=== PATIENT | female | born 1985 | race Caucasian/White ===

== ENCOUNTER 2019-07-04 06:30 | Day surgery (SDC) | payer BC ==
[2019-06-28 12:42] VITALS: BMI 29.2
--- NOTE | 2019-07-03 20:22 | P.HPOB ---
History of Present Illness H&P Date: 07/03/19 Chief Complaint: Family planning, menorrhagia This is a 34-year-old female 4 para 4 who presents for laparoscopic bilateral tubal ligation along with removal of Mirena IUD and dilation and curettage with hysteroscopy and NovaSure endometrial ablation due to family pl anning and history of menorrhagia. She does not like the side effects from the Mirena including weight gain, moodiness, and cramping. She does however have a history of very heavy menses and would like to do something definitive to control her heavy bleeding. Obstetrical history: . History of 4 vaginal deliveries. Gynecologic history: No history of sexual transmitted diseases. She currently is using a Mirena IUD for control. Social history: She is . 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 Review of Systems Constitutional: Denies chills, Denies fever Eyes: denies blurred vision, denies pain Ears, nose, mouth and throat: Reports headache, Denies sore throat Respiratory: Denies cough Gastrointestinal: Denies abdominal pain, Denies diarrhea, Denies nausea, Denies vomiting Genitourinary: Reports menorrhagia (History) Menstruation: Reports amenorrhea on BC Musculoskeletal: Reports myalgias, Reports neck pain Integumentary: Denies pruritus, Denies rash Neurological: Denies numbness, Denies weakness Psychiatric: Reports depression, Reports irritability Endocrine: Reports weight change Past Medical History Past Medical History: Fibromyalgia, Thyroid Disorder History of Any Multi-Drug Resistant Organisms: None Reported Past Surgical History: Adenoidectomy, Breast Surgery, Tonsillectomy Additional Past Surgical History / Comment(s): Breast augmentation, wisdom teeth. Past Anesthesia/Blood Transfusion Reactions: No Reported Reaction Past Psychological History: Depression Smoking Status: Former smoker Past Alcohol Use History: Occasional Additional Past Alcohol Use History / Comment(s): Smoked 2 yrs on and off, quit 1 yr ago. Past Drug Use History: None Reported - Past Family History Mother Family Medical History: Cancer Additional Family Medical History / Comment(s): Uterine cancer. Medications and Allergies Home Medications Medication Instructions Recorded Confirmed Type Cholecalciferol [Vitamin D3 (25 2,000 unit PO DAILY 06/28/19 06/28/19 History Mcg = 1000 Iu)] Escitalopram [Lexapro] 20 mg PO QAM 06/28/19 06/28/19 History Gabapentin [Neurontin] 300 mg PO DAILY 06/28/19 06/28/19 History L.acidoph,Paracasei, B.lactis 1 each PO DAILY 06/28/19 06/28/19 History [Probiotic] Levothyroxine Sodium [Synthroid] 50 mcg PO QAM 06/28/19 06/28/19 History Topiramate [Topamax] 100 mg PO DAILY 06/28/19 06/28/19 History tiZANidine HCL [Zanaflex] 2 mg PO TID 06/28/19 06/28/19 History Allergies Allergy/AdvReac Type Severity Reaction Status Date / Time No Known Allergies Allergy Verified 06/28/19 12:43 Exam Osteopathic Statement: *. No significant issues noted on an osteopathic structural exam other than those noted in the History and Physical/Consult. HEENT: Within normal limits Heart: Regular rate and rhythm Lungs: Clear to auscultation bilaterally Abdomen: Soft, nontender Pelvic exam: Uterus is anteverted, nontender, with no adnexal masses or tenderness palpated. IUD strings are visible. Extremities: Negative Homans Assessment and Plan (1) Family planning Status: Acute Code(s): Z30.09 - ENCOUNTER FOR OTH GENERAL CNSL AND ADVICE ON CONTRACEPTION SNOMED Code(s): 187328449 (2) Menorrhagia Status: Acute Code(s): N92.0 - EXCESSIVE AND FREQUENT MENSTRUATION WITH REGULAR CYCLE SNOMED Code(s): 263794058 Plan: Proceed with removal of IUD along with laparoscopic bilateral tubal ligation via fulguration and dilation and curettage with hysteroscopy and NovaSure endometrial ablation. I have discussed the risks, benefits, and alternative therapies for the above- mentioned procedure and for both sedation/anesthesia as well as necessary blood products administration, if indicated, as they pertain to this patient. The patient has indicated her understanding and acceptance of the risks and procedures discussed.
[~2019-07-04 06:30] MED LIST: DEXAMETHASONE SOD PHOSPHATE 10 MG/ML 1 ML VIAL IV ONE; HYDROmorphone 0.5 MG/0.5 ML SYRINGE IVP PRN; KETOROLAC 30 MG/ML 1 ML VIAL IVP SCH; LACTATED RINGERS 1,000 ML IV SCH; LIDOCAINE 1% 20 ML VIAL (10MG/ML) FOR IV START INTRADERMA PRN; ONDANSETRON 4 MG/2 ML VIAL IVP ONE; ONDANSETRON 4 MG/2 ML VIAL IVP PRN; Pre Op ABX Message 1 EACH MISC MISCELLANE ONE; SCOPOLAMINE 1.5MG/72HR PATCH TRANSDERM ONE
[2019-07-04] MEDS ORDERED: GLYCOPYRROLATE 0.2 MG/ML 2 ML VIAL ONE (07:18)
[2019-07-04] MEDS ORDERED: KETOROLAC 30 MG/ML 1 ML VIAL ONE (07:18)
[2019-07-04] MEDS ORDERED: ROCURONIUM BROMIDE 10 MG/ML 10 ML VIAL IV ONE (07:18)
[2019-07-04] MEDS ORDERED: MIDAZOLAM 2 MG/2 ML VIAL ONE (07:18)
[2019-07-04] MEDS ORDERED: PROPOFOL 10 MG/ML 20 ML VIAL IV ONE (07:18)
[2019-07-04] MEDS ORDERED: SUCCINYLCHOLINE CHLORIDE 100 MG/5 ML SYR IV ONE (07:18)
[2019-07-04] MEDS ORDERED: LIDOCAINE 1% INJ 10MG/ML (20 ML MDV) ONE (07:18)
[2019-07-04] MEDS ORDERED: NEOSTIGMINE 1 MG/ML 10 ML VIAL ONE (07:18)
[2019-07-04] MEDS ORDERED: ePHEDrine SULFATE/0.9% NACL/PF 50 MG/5 ML SYRINGE IV ONE (07:18)
[2019-07-04] MEDS ORDERED: fentaNYL (PF) 50 MCG/ML 2 ML AMP ONE (07:18)
[2019-07-04] MEDS ORDERED: BUPIVACAINE (PF) 0.25% 30 ML VIAL SQ ONE (08:11)
--- NOTE | 2019-07-04 08:16 | P.OP ---
Date of Procedure: 07/04/19 Preoperative Diagnosis: Family planning History of menorrhagia Postoperative Diagnosis: Same Procedure(s) Performed: IUD removal Dilation and curettage with hysteroscopy and NovaSure endometrial ablation Laparoscopic bilateral tubal ligation via fulguration Anesthesia: JEAN Surgeon: Beckie Donovan Estimated Blood Loss (ml): 10 Pathology: other (Endometrial curettings) Disposition: same day Indications for Procedure: This is a 34-year-old female 4 para 4 who presents for laparoscopic bilateral tubal ligation along with removal of Mirena IUD and dilation and curettage with hysteroscopy and NovaSure endometrial ablation due to family planning and history of menorrhagia. She does not like the side effects from the Mirena including weight gain, moodiness, and cramping. She does however have a history of very heavy menses and would like to do something definitive to control her heavy bleeding. Operative Findings: Uterus is anteverted and sounded to 9 cm. Cervix sounded to 3 cm. Upon hysteroscopy, both tubal ostia is visualized. There is a small amount of blood clot within the endometrium due to IUD removal. Minimal amount of endometrial obtained. Upon laparoscopy, normal uterus tubes and ovaries are noted. Description of Procedure: The patient is taken to the operating room. She is placed in the dorsal lithotomy position after general anesthesia was given. She is prepped and draped in the normal sterile fashion. Bladder is drained with a catheter and then removed. Pelvic exam is performed under anesthesia. Uterus is found to be anteverted with no adnexal masses. She is placed in slight Trendelenburg position. A weighted speculum was placed in the patient's vagina. A right angle retractor is used to visualize the cervix. The anterior lip of the cervix is grasped with a single-tooth tenaculum. A forcep is used to grasp the IUD strings. The IUD the Mirena IUD and is removed intact and discarded. Cervix is sounded to 3 cm. Uterus is sounded to 9 cm. Cervix is gently dilated with Gallagher dilators until a hysteroscope could be passed. Hysteroscopy is performed using normal saline. The above noted findings are noted. Next a polyp forceps is introduced. And a minimal amount of tissue was obtained. Next medium-sized size sharp curette was placed. A minimal amount of endometrial curettings were obtained. Next NovaSure array was inserted into the endometrial cavity. Length was set at 6 cm and width was determined to be 2.7 cm. Next cavity assessment was completed and passed on the first try. Next NovaSure array was fired at 89 W for 86 seconds. Next the array was removed, inspected and then discarded. Next the hysteroscope was reinserted. Uniform charring was noted. Pictures were taken. Hysteroscope was removed. A kroner uterine manipulator is then inserted through the cervix and the balloon is inflated. Single-tooth tenaculum was removed from the anterior lip of the cervix. Minimal bleeding was noted. Attention is then turned to the abdomen. Gloves are changed. The i nfraumbilical fold was grasped in transverse fashion with 2 Allis clamps. A small transverse incision was made with a scalpel. A hemostat was used to carry the incision down to the underlying layer of fascia. A towel clip was placed above the umbilicus for retraction. A 11 mm disposable bladeless trocar was then inserted into the peritoneal cavity under direct visualization. Once inside, pneumoperitoneum was achieved with CO2 gas. The insert was removed and the camera was placed. Intraperitoneal placement was confirmed. No bleeding was noted. Next the patient was placed in Trendelenburg position. A small stab incision was made suprapubically and a 5 mm disposable bladeless trocar was inserted into the peritoneal cavity under direct visualization. Once inside pelvic contents were inspected. Next a bipolar Kleppinger instrument was placed through the inferior trocar and the midportion of each tube was brought away from other structures and completely fulgurated on approximate 2-3 cm segment of each tube. Excellent hemostasis was noted. A picture was taken. Pneumoperitoneum was released after the inferior trocar was removed under direct visualization. The upper trocar was then removed. The fascial incision was closed with 0 Vicryl suture in interrupted [id number] stitch. The skin incisions were then closed with 4-0 Vicryl suture in a subcuticular fashion. I ncisions were then injected with quarter percent Marcaine. Approximately 7 mL were used. Next the kroner uterine manipulator was removed. Minimal bleeding was noted. All sponge and needle counts are correct. The patient is then taken to recovery room in stable condition.
[2019-07-04 08:30] VITALS: TEMP 97.5
[2019-07-04 08:38] VITALS: RESP 16
[2019-07-04] MEDS ORDERED: HYDROcodone/APAP 5-325MG 1 EACH TAB PO ONE (09:10)
[2019-07-04 09:11] VITALS: BP 117/75; PULSE 66
== END 2019-07-04 10:04 | disposition home or self-care (01) ==
LOC: OR 06:30
PROVIDERS: ATTEND Obstetrics & Gynecology
DX: Z30.2 Encounter for sterilization (principal); N92.0 Excessive and frequent menstruation with regular cycle; Z30.432 Encounter for removal of intrauterine contraceptive device; N85.00 Endometrial hyperplasia, unspecified; M79.7 Fibromyalgia; E07.9 Disorder of thyroid, unspecified; F32.9 Major depressive disorder, single episode, unspecified; G43.909 Migraine, unspecified, not intractable, without status migrainosus; Z87.891 Personal history of nicotine dependence; Z79.890 Hormone replacement therapy; Z79.899 Other long term (current) drug therapy
CPT/HCPCS: 81025; 88305; 58563; 58670; 58301; J2250; J1100; J2710; J2405; J2001; J3010; J1885; J0330; J2704

== ENCOUNTER 2021-12-16 20:22 | Emergency (ER) | payer BC, OTHER ==
[2021-12-16 20:29] VITALS: BP 126/82; PULSE 93; RESP 18; TEMP 97.9
[2021-12-16] MEDS ORDERED: IBUPROFEN 600 MG TAB PO STA (21:17)
--- NOTE | 2021-12-16 21:52 | XR ---
EXAMINATION TYPE: XR hand complete LT DATE OF EXAM: 12/16/2021 9:34 PM INDICATION: Patient age:Female; 36 years old; Reason for study: hand pain; . COMPARISON: None TECHNIQUE: 3 views of the left hand were obtained. FINDINGS: Normal alignment of the visualized joints. No acute osseous pathology is identified. No e vidence of soft tissue swelling. IMPRESSION: No acute osseous pathology.
--- NOTE | 2021-12-16 22:30 | ED ---
Upper Extremity HPI - General Chief Complaint: Extremity Injury, Upper Stated Complaint: IHS, LT hand pain Time Seen by Provider: 12/16/21 20:30 Source: patient Mode of arrival: ambulatory Limitations: no limitations - History of Present Illness Initial Comments: 36-year-old female presents emergency Department with reported left hand pain. She does work at [employer] [place]. She slipped on urine at work and fell into a wall. She caught herself with her left hand. She is right-hand dominant. Reports that she is having pain at the 5th MCP joint. She did not take any medications for her symptoms. Continued to try work however was having difficulty using that hand in her work recommended that she come into the emergency room for x-rays. Denies any previous injuries. No additional injuries to include head trauma. Denies any neck or back pain. Denies any numbness, tingling or weakness in her hand. No other alleviating, precipitating or modifying factors - Related Data Home Medications Medication Instructions Recorded Confirmed Escitalopram [Lexapro] 20 mg PO HS 06/28/19 12/16/21 Gabapentin [Neurontin] 300 mg PO HS 06/28/19 12/16/21 Topiramate [Topamax] 100 mg PO HS 06/28/19 12/16/21 tiZANidine HCL [Zanaflex] 2 mg PO TID 06/28/19 12/16/21 Levothyroxine Sodium [Synthroid] 75 mcg PO DAILY 12/16/21 12/16/21 buPROPion XL [Wellbutrin XL] 150 mg PO HS 12/16/21 12/16/21 Allergies Allergy/AdvReac Type Severity Reaction Status Date / Time No Known Allergies Allergy Verified 12/16/21 21:37 Review of Systems ROS Statement: Those systems with pertinent positive or pertinent negative responses have been documented in the HPI. ROS Other: All systems not noted in ROS Statement are negative. Past Medical History Past Medical History: Fibromyalgia, Thyroid Disorder History of Any Multi-Drug Resistant Organisms: None Reported Past Surgical History: Adenoidectomy, Breast Surgery, Tonsillectomy Additional Past Surgical History / Comment(s): Breast augmentation, wisdom teeth. Past Anesthesia/Blood Transfusion Reactions: No Reported Reaction Past Psychological History: Depression Smoking Status: Current every day smoker Past Alcohol Use History: Occasional Past Drug Use History: None Reported - Past Family History Mother Family Medical History: Cancer Additional Family Medical History / Comment(s): Uterine cancer. General Exam Limitations: no limitations General appearance: alert, in no apparent distress Head exam: Present: atraumatic, normocephalic, normal inspection Extremities exam: Present: other (tenderness to 5th mcp joint on the left. Mild swelling. No ecchymosis. Full ROM at DIP, PIP and MCP. 2+ radial pulse. cap refill <2 seconds. Intact distal sensation. Compartments soft. No scaphoid tenderness) Course Vital Signs 12/16/21 20:26 Temperature 97.9 F Pulse Rate 93 Respiratory 18 Rate Blood Pressure 126/82 O2 Sat by Pulse 97 Oximetry Medical Decision Making - Medical Decision Making Upon arrival patient is placed into room 29. A thorough history and physical exam is performed. Patient has full normal range of motion. She is tender over the fifth MCP joint. X-rays performed which demonstrates no acute fracture. Patient is given a dose of Motrin for pain control. I discussed diagnosis, d ifferential treatment options. Patient will be discharged home with limited use of the left upper extremity. Instructed to rest, ice and elevate the extremity. Follow up to primary care doctor in 7-10 days for repeat imaging if her pain persists. Return for any new or worsening symptoms per patient agreement treatment plan was discharged home in stable condition Disposition Clinical Impression: Hand sprain Disposition: HOME SELF-CARE Condition: Stable Instructions (If sedation given, give patient instructions): Hand Sprain (ED) Additional Instructions: Rest, ice and elevate the extremity. Alternate taking Motrin and Tylenol for pain control. You may need repeat imaging in 7-10 days if your pain persists. Return to the emergency room for any new or worsening symptoms Is patient prescribed a controlled substance at d/c from ED?: No Referrals: Jacinto Azar DO [Primary Care Provider] - 1-2 days Bandar Clemente DO [Doctor of Osteopathic Medicine] - 1-2 days Time of Disposition: 22:30
== END 2021-12-16 22:38 | disposition home or self-care (01) ==
LOC: EC 20:22
DX: S63.92XA Sprain of unspecified part of left wrist and hand, initial encounter (principal); F17.200 Nicotine dependence, unspecified, uncomplicated; W22.01XA Walked into wall, initial encounter
CPT/HCPCS: 99283

== ENCOUNTER 2023-03-18 17:58 | Observation (INO) | payer BC ==
--- NOTE | 2023-03-18 18:13 | ED ---
Chest Pain HPI - General Chief Complaint: Chest Pain Stated Complaint: Chest Pain Time Seen by Provider: 03/18/23 18:09 Source: patient, EMS, RN notes reviewed, old records reviewed Mode of arrival: EMS Limitations: no limitations - History of Present Illness Initial Comments: This is a 37-year-old female DF for evaluation today. Patient Dese for evalu ation of near syncopal event with significant chest pain. Chest pain over the anterior left side of his chest radiating to her back. Patient has no significant medical history takes no medications for high blood pressure high cholesterol diabetes blood patient no longer currently smokes. No travel history no sick contacts. Events occurred prior to arrival with a near syncopal event diaphoresis. MD Complaint: chest pain -: minutes(s) Onset: during rest Pain Location: substernal, left chest Pain Radiation: back Severity: moderate, severe Severity scale (1-10): 7 Quality: sharp Consistency: intermittent Improves With: nothing Worsens With: nothing Anginal Symptoms: nausea, dyspnea, sense of impending doom Other Symptoms: palpitations Treatments Prior to Arrival: none - Related Data Home Medications Medication Instructions Recorded Confirmed Escitalopram [Lexapro] 20 mg PO HS 06/28/19 03/18/23 tiZANidine HCL [Zanaflex] 2 mg PO BID PRN 06/28/19 03/18/23 Levothyroxine Sodium [Synthroid] 75 mcg PO DAILY 12/16/21 03/18/23 buPROPion XL [Wellbutrin XL] 150 mg PO HS 12/16/21 03/18/23 Phentermine HCl [Adipex-P] 37.5 mg PO DAILY PRN 03/18/23 03/18/23 Allergies Allergy/AdvReac Type Severity Reaction Status Date / Time No Known Allergies Allergy Verified 03/18/23 19:20 Review of Systems ROS Statement: Those systems with pertinent positive or pertinent negative responses have been documented in the HPI. ROS Other: All systems not noted in ROS Statement are negative. EKG Findings - EKG Comments: EKG Findings:: EKG is sinus 90 TX 120 QRS 77 QTC 392 Past Medical History Past Medical History: Fibromyalgia, Thyroid Disorder History of Any Multi-Drug Resistant Organisms: None Reported Past Surgical History: Adenoidectomy, Breast Surgery, Tonsillectomy Additional Past Surgical History / Comment(s): Breast augmentation, wisdom teeth. Past Anesthesia/Blood Transfusion Reactions: No Reported Reaction Past Psychological History: Depression Smoking Status: Current every day smoker Past Alcohol Use History: Daily Past Drug Use History: None Reported - Past Family History Mother Family Medical History: Cancer Additional Family Medical History / Comment(s): Uterine cancer. General Exam Limitations: no limitations General appearance: anxious Head exam: Present: atraumatic, normocephalic, normal inspection Eye exam: Present: normal appearance, PERRL, EOMI. Absent: scleral icterus, co njunctival injection, periorbital swelling ENT exam: Present: normal exam, mucous membranes moist Neck exam: Present: normal inspection. Absent: tenderness, meningismus, lymphadenopathy Respiratory exam: Present: normal lung sounds bilaterally. Absent: respiratory distress, wheezes, rales, rhonchi, stridor Cardiovascular Exam: Present: regular rate, normal rhythm, normal heart sounds. Absent: systolic murmur, diastolic murmur, rubs, gallop, clicks GI/Abdominal exam: Present: soft, normal bowel sounds. Absent: distended, tenderness, guarding, rebound, rigid Extremities exam: Present: normal inspection, full ROM, normal capillary refill. Absent: tenderness, pedal edema, joint swelling, calf tenderness Back exam: Present: normal inspection Neurological exam: Present: alert, oriented X3, CN II-XII intact Psychiatric exam: Present: normal affect, normal mood Skin exam: Present: warm, dry, intact, normal color. Absent: rash Course Vital Signs 03/18/23 03/18/23 03/18/23 18:02 19:34 21:00 Temperature 99.4 F Pulse Rate 93 103 H 93 Respiratory 16 18 20 Rate Blood Pressure 132/91 128/87 143/82 O2 Sat by Pulse 97 98 98 Oximetry - Reevaluation(s) Reevaluation #1: 03/18/23 21:32 Medical record is reviewed Reevaluation #2: 03/18/23 21:32 Patient has persistent chest pain Reevaluation #3: 03/18/23 21:32 Patient informed results and questions are answered Reevaluation #4: 03/18/23 21:32 Was pt. sent in by a medical professional or institution? @ -no Did you speak to anyone other than the patient for history? @ -no Did you review nursing and triage notes? @ -agree Were old charts reviewed? @ -no Differential Diagnosis? @ -chest pain, arrhythmia EKG interpreted by me (3pts min.)? @ -yes X-rays interpreted by me (1pt min.)? @ -yes CT interpreted by me (1pt min.)? @ -no U/S interpreted by me (1pt. min.)? @ -no What testing was considered but not performed? (CT, X-rays, U/S, labs)? Why? @ -no What meds were considered but not given? Why? @ -no Did you discuss the management of the patient with other professionals? @ -no Did you reconcile home meds? @ -no Was smoking cessation discussed for >3mins.? @ -no Was critical care preformed (if so, how long)? @ -no Were there social determinants of health that impacted care today? How? (Homelessness, low income, unemployed, alcoholism, drug addiction, transportation, low edu. Level, literacy, decrease access to med. care, shelter, rehab)? @ -no Was there de-escalation of care discussed even if they declined? (Discuss DNR or withdrawal of care, Hospice)? @ -no What co-morbidities impacted this encounter? (DM, HTN, Smoking, COPD, CAD, Cancer, CVA, Hep., AIDS, mental health diagnosis, sleep apnea, morbid obesity)? @ -no Was patient admitted / discharged? @ -dc Undiagnosed new problem with uncertain prognosis? @ -no Drug Therapy requiring intensive monitoring for toxicity (Heparin, Nitro, Insulin, Cardizem)? @ -no Were any procedures done? @ -no Diagnosis/symptom? @ -cp Acute, or Chronic, or Acute on Chronic? @ -acute Uncomplicated (without systemic symptoms) or Complicated (systemic symptoms)? @ -uncomplicated Side effects of treatment? @ -no Exacerbation, Progression, or Severe Exacerbation] @ -exacerbation Poses a threat to life or bodily function? @ -yes if ACS Reevaluation #5: 03/18/23 21:32 Differential Chest Pain: Stable Angina, Unstable Angina, STEMI, NSTEMI Aortic Dissection, Pneumothorax, Musculoskeletal, Esophageal Spasm GERD, Cholecystitis, Pancreatitis, Zoster, this is not meant to be an all-inclusive list. - Consultations Consultation #1: Spoke with Dr. Azar who agrees to admit this patient Chest Pain MDM - MDM 37 female DF for evaluation patient Dese for evaluation of chest pain. Significant chest pain anterior to back. Near syncopal event during this initial chest pain, patient also had persistent chest pain here in the ER despite pain medication which radiated to her back and turned into significant back pain that was not reproducible. Patient episodes of diaphoresis with the chest was at its worst, patient will be admitted for cardiac observation Critical Care Time Critical Care Time: Yes Total Critical Care Time: 31 Disposition Clinical Impression: Chest pain, Atypical chest pain, Near syncope Disposition: ADMITTED IP TO THIS HOSP Condition: Undetermined Is patient prescribed a controlled substance at d/c from ED?: No Referrals: Jacinto Azar DO [Primary Care Provider] - 1-2 days Time of Disposition: 21:30
[2023-03-18 18:28] LABS: Basophils % (A) 0 %; Eosinophils # (A) 0.4 k/uL (0-0.7); Eosinophils % (A) 3 %; HCT 40.4 % (34.0-46.0); Lymphocytes # (A) 1.3 k/uL (1.0-4.8); Lymphocytes % (A) 9 %; MCH 30.7 pg (25.0-35.0); MCHC 34.6 g/dL (31.0-37.0); MCV 88.9 fL (80.0-100.0); Mean Platelet Volume 8.1; Monocytes # (A) 0.3 k/uL (0-1.0); Monocytes % (A) 2 %; Neutrophils # (A) 12.7 k/uL (1.3-7.7); Neutrophils % (A) 86 %; Platelet Count 304 k/uL (150-450); RBC 4.54 m/uL (3.80-5.40); RDW 13.6 % (11.5-15.5); WBC 14.8 k/uL (3.8-10.6)
[2023-03-18 18:37] LABS: ALT 27 U/L (4-34); AST 26 U/L (14-36); African American GFR (CKD) >90 (>60 ml/min/1.73 sqM); Albumin 4.1 g/dL (3.5-5.0); Alkaline Phosphatase 65 U/L (38-126); Anion Gap 11 mmol/L; Blood Urea Nitrogen 15 mg/dL (7-17); Calcium 9.4 mg/dL (8.4-10.2); Carbon Dioxide 20 mmol/L (22-30); Chloride 106 mmol/L (98-107); Glucose 92 mg/dL (74-99); Lipase 150 U/L (23-300); Magnesium 1.8 mg/dL (1.6-2.3); Non-African American GFR(CKD) >90 (>60 ml/min/1.73 sqM); Potassium 3.8 mmol/L (3.5-5.1); Sodium 137 mmol/L (137-145); Total Bilirubin 0.5 mg/dL (0.2-1.3); Total Protein 7.2 g/dL (6.3-8.2)
[2023-03-18 18:40] LABS: INR 0.9 (<1.2); Partial Thromboplastin Time 22.4 sec (22.0-30.0); Prothrombin Time 9.9 sec (9.0-12.0)
[2023-03-18] MEDS ORDERED: MORPHINE SULFATE 4 MG/ML SYRINGE IVP STA (19:10)
[2023-03-18] MEDS: ONDANSETRON 4 MG/2 ML VIAL IVP PRN (19:29)
--- NOTE | 2023-03-18 19:48 | XR ---
EXAMINATION TYPE: XR chest 2V DATE OF EXAM: 03/18/2023 7:14 PM COMPARISON: None TECHNIQUE: XR chest 2V Frontal and lateral views of the chest. CLINICAL INDICATION:Female, 37 years old with history of Chest Pain; FINDINGS: Lungs/Pleura: There is no evidence of pleural effusion, focal consolidation, or pneumothorax. Pulmonary vascularity: Unremarkable. Heart/mediastinum: Cardiomediastinal silhouette is unremarkable. Musculoskeletal: No acute osseous pathology. IMPRESSION: No acute cardiopulmonary disease/process.
[2023-03-18] MEDS ORDERED: HYDROmorphone 1 MG/ML 1 ML SYRINGE IVP STA (20:04)
--- NOTE | 2023-03-18 20:35 | CT ---
EXAMINATION TYPE: CT angio chest CT DLP: 854.6 mGycm, Automated exposure control for dose reduction was used. DATE OF EXAM: 03/18/2023 8:25 PM COMPARISON: Chest radiograph from same day. CLINICAL INDICATION:Female, 37 years old with history of cp; severe chest pain TECHNIQUE/CONTRAST: CTA scan of the thorax is performed with IV Contrast, patient injected with 100ml mL of Isovue 370, p ulmonary embolism protocol. MIP images are created and reviewed these are created on a separate work station.. FINDINGS: Mild motion artifact limits evaluation. Pulmonary Artery: There is no evidence for a filling defect within the pulmonary vasculature to sugge st acute pulmonary embolism. The pulmonary artery is of normal size. Lungs/Pleura: No evidence of focal consolidation, pleural effusion or pneumothorax. Airway: Large airways are patent. Heart: Heart is within normal limits for size. Vasculature: No evidence of aortic aneurysm. Mediastinum: No gross evidence of adenopathy. Musculoskeletal: No acute osseous abnormalities Soft Tissues: Bilateral breast implants which appear intact. Lower neck: No significant findings. Upper Abdomen: No significant findings. IMPRESSION: No evidence of pulmonary embolism or evidence for acute thoracic process.
[2023-03-18] MEDS ORDERED: PROCHLORPERAZINE INJ 10 MG/2 ML VIAL IVP STA (21:14)
[2023-03-18] MEDS ORDERED: MORPHINE SULFATE 4 MG/ML SYRINGE IVP PRN (21:14)
[2023-03-18] MEDS ORDERED: HYDROmorphone 1 MG/ML 1 ML SYRINGE IVP PRN (21:29)
[2023-03-18] MEDS ORDERED: NALOXONE 0.4 MG/ML 1 ML VIAL IV PRN (21:29)
[2023-03-18] MEDS ORDERED: SODIUM CHLORIDE 0.9% 1,000 ML IV SCH (21:30)
[2023-03-19] MEDS: ONDANSETRON 4 MG/2 ML VIAL IVP PRN (10:20)
[2023-03-19] MEDS ORDERED: LEVOTHYROXINE 75 MCG TAB PO SCH (10:45)
--- NOTE | 2023-03-19 11:00 | P.CRDCN ---
History of Present Illness Consult date: 03/19/23 History of present illness: HISTORY OF PRESENT ILLNESS: This is a 37-year-old female with a past medical history significant for hypothyroidism, depression, and nicotine dependence. Patient does not follow with a securities teller. We have been asked to see the patient in consultation for chest pain. Patient examined at the bedside. Patient states she was at work yesterday sitting at her desk when she began to have chest pain. She states that felt like a squeezing sensation. She states the pain radiated into her back. She states the pain lasted for approximately 5 minutes. She also reports that she began to feel diaphoretic and started to have blurred vision. She states that she laid on the floor and decided to call 911. She denies any loss of consciousness. She is a smoker and currently smokes half a pack per day. She has a family history of coronary artery disease and states her mom had a two-vessel CABG last year at the age of 68. * EKG reveals sinus mechanism with no signs of acute ischemia * Chest xray negative for acute process * Chest CT: No evidence for pulmonary embolism * Laboratory data: WBC 14.8. Hemoglobin 14.0. Platelet count 304. Sodium 137. Potassium 3.8. BUN 15. Creatinine 0.72. Troponin negative 3. ProBNP 39. * Current home cardiac medications include none REVIEW OF SYSTEMS: At the time of my exam: CONSTITUTIONAL: Denies fever or chills. HEENT: Denies blurred vision, vision changes, or eye pain. Denies hemoptysis CARDIOVASCULAR: Denies chest pain. Denies orthopnea. Denies PND. Denies palpitations RESPIRATORY: Denies shortness of breath. GASTROINTESTINAL: Denies abdominal pain. Denies nausea or vomiting. HEMATOLOGIC: Denies bleeding disorders. GENITOURINARY: Denies any blood in urine. SKIN: Denies pruitis. Denies rash. PHYSICAL EXAM: VITAL SIGNS: Reviewed. GENERAL: Well-developed in no acute distress. HEENT: Head is normocephalic. Pupils are equal, round. Sclerae anicteric. Mucous membranes of the mouth are moist. Neck supple. No JVD or thyromegaly LUNGS: Respirations even and unlabored. Lungs essentially clear to auscultation bilaterally. HEART: Regular rate and rhythm. S1 and S2 heard. ABDOMEN: Soft. Nondistended. Nontender. EXTREMITIES: Normal range of motion. No clubbing or cyanosis. Peripheral pulses intact. No lower extremity edema NEUROLOGIC: Awake and alert. Oriented x 3. ASSESSMENT: Chest pain, troponins negative 3 Hypothyroidism Depression Nicotine dependence Family history of coronary artery disease PLAN: An acute coronary has been ruled out Obtain 2-D echo to assess cardiac structure and function Patient to undergo stress echocardiogram today If negative, she may be discharged home from a cardiac standpoint Smoking cessation recommended Further recommendations pending patient's course Nurse practitioner note has been reviewed by physician. Signing provider agrees with the documented findings, assessment, and plan of care. Past Medical History Past Medical History: Fibromyalgia, Thyroid Disorder History of Any Multi-Drug Resistant Organisms: None Reported Past Surgical History: Adenoidectomy, Breast Surgery, Tonsillectomy Additional Past Surgical History / Comment(s): Breast augmentation, wisdom t eeth. Past Anesthesia/Blood Transfusion Reactions: No Reported Reaction Past Psychological History: Depression Smoking Status: Current every day smoker Past Alcohol Use History: Daily Past Drug Use History: None Reported - Past Family History Mother Family Medical History: Cancer Additional Family Medical History / Comment(s): Uterine cancer. Medications and Allergies Home Medications Medication Instructions Recorded Confirmed Type Escitalopram [Lexapro] 20 mg PO HS 06/28/19 03/18/23 History tiZANidine HCL [Zanaflex] 2 mg PO BID PRN 06/28/19 03/18/23 History Levothyroxine Sodium [Synthroid] 75 mcg PO DAILY 12/16/21 03/18/23 History buPROPion XL [Wellbutrin XL] 150 mg PO HS 12/16/21 03/18/23 History Phentermine HCl [Adipex-P] 37.5 mg PO DAILY PRN 03/18/23 03/18/23 History Allergies Allergy/AdvReac Type Severity Reaction Status Date / Time No Known Allergies Allergy Verified 03/18/23 19:20 Physical Exam Vitals: Vital Signs Temp Pulse Resp BP Pulse Ox 03/19/23 06:00 83 16 123/82 96 03/19/23 04:00 82 15 106/68 96 03/19/23 01:00 86 15 114/75 95 03/18/23 23:00 88 15 128/65 95 03/18/23 21:00 93 20 143/82 98 03/18/23 19:34 103 H 18 128/87 98 03/18/23 18:02 99.4 F 93 16 132/91 97 Intake and Output 03/18/23 03/19/23 03/19/23 22:59 06:59 14:59 Other: Weight 79.832 kg Results 03/18/23 18:17 03/18/23 18:17 Cardiac Enzymes 03/18/23 03/18/23 03/18/23 Range/Units 18:17 18:17 23:18 AST 26 (14-36) U/L Troponin I <0.012 <0.012 (0.000-0.034) ng/mL 03/19/23 Range/Units 02:16 AST (14-36) U/L Troponin I <0.012 (0.000-0.034) ng/mL Coagulation 03/18/23 Range/Units 18:17 PT 9.9 (9.0-12.0) sec APTT 22.4 (22.0-30.0) sec CBC 03/18/23 Range/Units 18:17 WBC 14.8 H (3.8-10.6) k/uL RBC 4.54 (3.80-5.40) m/uL Hgb 14.0 (11.4-16.0) gm/dL Hct 40.4 (34.0-46.0) % Plt Count 304 (150-450) k/uL Comprehensive Metabolic Panel 03/18/23 Range/Units 18:17 Sodium 137 (137-145) mmol/L Potassium 3.8 (3.5-5.1) mmol/L Chloride 106 (98-107) mmol/L Carbon Dioxide 20 L (22-30) mmol/L BUN 15 (7-17) mg/dL Creatinine 0.72 (0.52-1.04) mg/dL Glucose 92 (74-99) mg/dL Calcium 9.4 (8.4-10.2) mg/dL AST 26 (14-36) U/L ALT 27 (4-34) U/L Alkaline Phosphatase 65 (38-126) U/L Total Protein 7.2 (6.3-8.2) g/dL Albumin 4.1 (3.5-5.0) g/dL Current Medications Generic Name Dose Route Start Last Admin Trade Name Freq PRN Reason Stop Dose Admin Hydromorphone HCl 1 mg 03/18/23 21:29 03/18/23 23:32 Hydromorphone 1 Mg/Ml 1 Ml Syringe IVP 1 mg Q3HR PRN Administration Severe Pain (Scale 7 to 10) Sodium Chloride 1,000 mls @ 75 mls/hr 03/18/23 21:30 03/18/23 22:34 Saline 0.9% IV 75 mls/hr .[id number] LYNSEY Administration Morphine Sulfate 4 mg 03/18/23 21:14 03/18/23 22:35 Morphine Sulfate 4 Mg/Ml Syringe IVP 4 mg Q4HR PRN Administration Pain Naloxone HCl 0.2 mg 03/18/23 21:29 Naloxone 0.4 Mg/Ml 1 Ml Vial IV Q2M PRN Opioid Reversal Ondansetron HCl 4 mg 03/18/23 19:10 03/18/23 19:29 Ondansetron 4 Mg/2 Ml Vial IVP 4 mg Q8HR PRN Administration Nausea And Vomiting Intake and Output 03/18/23 03/19/23 03/19/23 22:59 06:59 14:59 Other: Weight 79.832 kg 03/18/23 18:17 03/18/23 18:17
--- NOTE | 2023-03-19 11:48 | P.HPIM ---
History of Present Illness H&P Date: 03/19/23 Chief Complaint: Chest pain This is a 37-year-old female with past medical history significant for obesity, nicotine dependence, depression, hypothyroidism, fibromyalgia, family history of CAD presented to the ER with complaints of chest pain. Reports she was sitting at her cubicle at work, pain initially started in her back, radiated around to midsternal chest with crushing pressure sensation, going through to her back , accompanied by shortness of breath, diaphoresis and mild right frontal headache. Proceeded to lay on the floor and coworker called 911. Reports symptoms eased up once she was in the ER. TSH morphine gave her no relief, she did not receive any nitroglycerin did receive some relief after Dilaudid. Chest CT reported negative for pulmonary embolism. EKG reported sinus rhythm, troponins negative 3. Afebrile, T-max 99.4, WBC 14.8, hemoglobin 14, platelets 304, INR 0.9.maintaining O2 sats in the mid to high 90s on room air. Chest x-ray repor getachew nonacute. Chemistry panel unremarkable with the exception of mildly decreased level bicarb, 20. Currently denies chest pain, palpitations or shortness of breath. Denies lightheadedness, dizziness or focal deficits. Headache has resolved. Review of Systems ROS Statement: Those systems with pertinent positive or pertinent negative responses have been documented in the HPI. ROS Other: All systems not noted in ROS Statement are negative. Past Medical History Past Medical History: Fibromyalgia, Thyroid Disorder History of Any Multi-Drug Resistant Organisms: None Reported Past Surgical History: Adenoidectomy, Breast Surgery, Tonsillectomy Additional Past Surgical History / Comment(s): Breast augmentation, wisdom teeth. Past Anesthesia/Blood Transfusion Reactions: No Reported Reaction Past Psychological History: Depression Smoking Status: Current every day smoker Past Alcohol Use History: Daily Past Drug Use History: None Reported - Past Family History Mother Family Medical History: Cancer Additional Family Medical History / Comment(s): Uterine cancer. Medications and Allergies Home Medications Medication Instructions Recorded Confirmed Type Escitalopram [Lexapro] 20 mg PO HS 06/28/19 03/18/23 History tiZANidine HCL [Zanaflex] 2 mg PO BID PRN 06/28/19 03/18/23 History Levothyroxine Sodium [Synthroid] 75 mcg PO DAILY 12/16/21 03/18/23 History buPROPion XL [Wellbutrin XL] 150 mg PO HS 12/16/21 03/18/23 History Phentermine HCl [Adipex-P] 37.5 mg PO DAILY PRN 03/18/23 03/18/23 History Allergies Allergy/AdvReac Type Severity Reaction Status Date / Time No Known Allergies Allergy Verified 03/18/23 19:20 Physical Exam Vitals: Vital Signs Temp Pulse Resp BP Pulse Ox 03/19/23 10:16 98.4 F 95 18 129/79 98 03/19/23 08:00 89 18 121/73 97 03/19/23 06:00 83 16 123/82 96 03/19/23 04:00 82 15 106/68 96 03/19/23 01:00 86 15 114/75 95 03/18/23 23:00 88 15 128/65 95 03/18/23 21:00 93 20 143/82 98 03/18/23 19:34 103 H 18 128/87 98 03/18/23 18:02 99.4 F 93 16 132/91 97 Intake and Output 03/18/23 03/19/23 03/19/23 22:59 06:59 14:59 Other: Weight 79.832 kg PHYSICAL EXAM: VITAL SIGNS: [As above] GENERAL: Sitting up on stretcher, no acute distress HEENT: Atraumatic, normocephalic Conjunctivae normal. eyes normal. NECK: Supple, No JVD. No thyroid enlargement. No LNs CARDIOVASCULAR: S1, S2 regular.mild tachycardia, No murmur RESPIRATION: Nonlabored, Breath sounds diminished in the bases. No rhonchi or crackles. No bronchial breathing. ABDOMEN: Soft, nondistended, nontender . No guarding. no masses palpable. No ascites, No hepatosplenomegaly.Bowel sounds heard. LEGS: No edema. no swelling PSYCHIATRY: Alert and oriented X3, mood and affect normal. NERVOUS SYSTEM: Cranial N 2-12 grossly normal. No focal deficits. Strength and sensation grossly intact. Skin: Warm and dry, no rash Results CBC & Chem 7: 03/18/23 18:17 03/18/23 18:17 Labs: Abnormal Lab Results - Last 24 Hours (Table) 03/18/23 03/18/23 Range/Units 18:17 18:17 WBC 14.8 H (3.8-10.6) k/uL Neutrophils # 12.7 H (1.3-7.7) k/uL Carbon Dioxide 20 L (22-30) mmol/L Assessment and Plan Assessment: Chest pain, troponin is negative 3, ACS ruled out. Stress echo pending Leukocytosis, mild secondary to the above Morbid obesity, BMI 34.4 Hypothyroidism Fibromyalgia Depression Ongoing nicotine dependence Plan: Continue on current medication regime ,monitoring and symptomatic treatment. Evaluated by cardiology with recommendations noted and appreciated. Patient will be discharged home today in a stable condition with guarded prognosis pending stress echo, final DC recommendations and clearance per [facility]. Smoking cessation reinforced. Discharge Medication List Escitalopram [Lexapro] 20 mg PO HS 06/28/19 [History] tiZANidine HCL [Zanaflex] 2 mg PO BID PRN 06/28/19 [History] Levothyroxine Sodium [Synthroid] 75 mcg PO DAILY 12/16/21 [History] buPROPion XL [Wellbutrin XL] 150 mg PO HS 12/16/21 [History] Phentermine HCl [Adipex-P] 37.5 mg PO DAILY PRN 03/18/23 [History] The impression and plan of care has been dictated as directed. : I performed a history and examination of this patient, discussed the same with the dictator. I agree with the dictator's note ,documented as a scribe. Any additional findings or plans will be noted.
--- NOTE | 2023-03-19 13:06 | CA ---
Stress Echo Report Jean-Paul Reddy Age: 37 Gender: F : 1985 Exam Date: 03/19/2023 11:35 Exam Location: [facility] Ht (in): 691 Wt (lb): 175 Ordering Physician: Pina Gordillo Referring Physician: [id number] Licensing Court Magistrate: Katty Hung RDCS Technologist Procedure CPT: Indication: LV function, CP ICD-9 Codes: Rhythm: Patient History: Family history, Hyperlipidemia, Smoker, Dyspnea/SOB, Atypical angina Cardiac Medications: Medications in past 24 hours: Contrast: Stress Results Protocol: Josias Total dose(mL): Exercise Duration (min:sec): 7:[address] Depression (mm): Angina Score: Jorge Score: METS: 8.9 Resting HR: 98 Resting BP: 102 / 57 Peak HR: 177 Peak BP: 146 / 89 Max Predicted HR: 181 98 % Max Predicted HR Target HR: 154 Double Product: [id number] Stress Summary: The patient's target heart rate was achieved BP Response: Normal Reason for Termination: Reached target heart rate or work-load Cardiac Symptoms: Test terminated after reaching target heart rate (85% max predicted) ECG Analysis Resting ECG: Stress ECG: Arrhythmia: Echo Analysis Resting Echo: Peak Echo Analysis: MEASUREMENTS (Male/Female) Normal Values CONCLUSIONS Excellent exercise tolerance Normal EKG and echo in response to exercise Dr. Des Joseph MD (Electronically Signed) Final Date: 19 March 2023 13:05
[2023-03-19 14:09] VITALS: BP 122/83; PULSE 102; RESP 18; TEMP 99
[2023-03-19] MEDS ORDERED: ESCITALOPRAM 20 MG TAB PO SCH (21:00)
[2023-03-19] MEDS ORDERED: buPROPion XL 150 MG TAB.ER.24H PO SCH (21:00)
--- NOTE | 2023-03-20 10:41 | CA ---
Transthoracic Echo Report Name: Jean-Paul Reddy Age: 37 Gender: F : 1985 Exam Date: 03/19/2023 09:48 Exam Location: [facility] Ht (in): 60 Wt (lb): 176 Ordering Physician: Michoacano Anguiano DO Attending/Referring Phys: [id number], Annmarie Clay Modeler Aislinn Nuñez, [place] Procedure CPT: Indications: CP Cardiac Hx: Technical Quality: Good Contrast 1: Total Dose (mL): Contrast 2: Total Dose (mL): MEASUREMENTS (Male / Female) Normal Values 2D ECHO LV Diastolic Diameter PLAX 4.0 cm 4.2 - 5.9 / 3.9 - 5.3 cm LV Systolic Diameter PLAX 2.4 cm IVS Diastolic Thickness 1.0 cm 0.6 - 1.0 / 0.6 - 0.9 cm LVPW Diastolic Thickness 1.0 cm 0.6 - 1.0 / 0.6 - 0.9 cm LV Relative Wall Thickness 0.5 RV Internal Dim ED PLAX 3.0 cm LA Systolic Diameter LX 3.0 cm 3.0 - 4.0 / 2.7 - 3.8 cm M-MODE Aortic Root Diameter MM 2.8 cm MV E Point Septal Separation 0.3 cm AV Cusp Separation MM 2.2 cm DOPPLER AV Peak Velocity 123.2 cm/s AV Peak Gradient 6.1 mmHg MV Area PHT 3.3 cm??? Mitral E Point Velocity 65.3 cm/s Mitral A Point Velocity 63.2 cm/s Mitral E to A Ratio 1.0 MV Deceleration Time 229.1 ms MV E' Velocity 9.8 cm/s Mitral E to MV E' Ratio 6.7 TR Peak Velocity 179.3 cm/s TR Peak Gradient 12.9 mmHg FINDINGS Left Ventricle Left ventricular ejection fraction is estimated at 55-60 %. Left ventricular cavity size normal. Left ventricular wall thickness normal. Right Ventricle Normal right ventricular size and function. No TR unable to estimate the right ventricular systolic pressure. Right Atrium Normal right atrial size. Left Atrium Normal left atrial size. Mitral Valve Structurally normal mitral valve. No mitral stenosis, regurgitation or prolapse. Aortic Valve Trileaflet aortic valve. No aortic valve stenosis or regurgitation. Tricuspid Valve Structurally normal tricuspid valve. No tricuspid regurgitation. Pulmonic Valve Structurally normal pulmonic valve. Trace pulmonic regurgitation. Pericardium Normal pericardium. No pericardial effusion. Aorta Normal size aortic root and proximal ascending aorta. CONCLUSIONS Normal LV systolic function Previewed by: Dr. Des Joseph MD (Electronically Signed) Final Date: 20 March 2023 10:40
== END 2023-03-19 14:15 | disposition home or self-care (01) ==
LOC: EC 17:58 → 6NMEDSUR 21:30
PROVIDERS: ADMIT Family Medicine; ATTEND Family Medicine
DX: R07.89 Other chest pain (principal); R55 Syncope and collapse; R61 Generalized hyperhidrosis; R00.2 Palpitations; R51.9 Headache, unspecified; D72.829 Elevated white blood cell count, unspecified; H53.8 Other visual disturbances; M79.7 Fibromyalgia; F32.A Depression, unspecified; E03.9 Hypothyroidism, unspecified; F17.210 Nicotine dependence, cigarettes, uncomplicated; E66.01 Morbid (severe) obesity due to excess calories; Z68.34 Body mass index [BMI] 34.0-34.9, adult; Z79.890 Hormone replacement therapy; Z79.899 Other long term (current) drug therapy; Z98.890 Other specified postprocedural states; Z98.82 Breast implant status; Z71.6 Tobacco abuse counseling; Z80.49 Family history of malignant neoplasm of other genital organs; Z82.49 Family history of ischemic heart disease and other diseases of the circulatory system
CPT/HCPCS: 96376 ×2; 96374; 96375; 99291; 36415; 93005; 93306; 93351; 83880; 80053; 83690; 83735; 84484 ×2; 85025; 85610; 85730; 71046; 71275; G0378 ×2; J2270; J0780; J2405 ×2; J1170; Q9967